=== PATIENT | male | born 1990 | race African-American/Black ===

== ENCOUNTER 2018-05-08 04:39 | Emergency (ER) | payer SELFPAY ==
[~2018-05-08] VITALS: Ht 177.8 cm; Wt 91.0 kg
[2018-05-08] MEDS ORDERED: HYDROCODONE/ACETAMINOPHEN 5/325MG TABLET PO ONE (06:45)
[2018-05-08 08:13] VITALS: BP 131/76
== END 2018-05-08 08:23 | disposition home or self-care (01) ==
LOC: ER 04:39
DX: K08.89 Other specified disorders of teeth and supporting structures (principal); F17.200 Nicotine dependence, unspecified, uncomplicated
CPT/HCPCS: 99283; Z7610